=== PATIENT | male | born 1990 | race Native Hawaiian/Other Pacific Islander ===

== ENCOUNTER 2017-12-13 17:21 | Emergency (ER) | payer BC ==
[~2017-12-13] VITALS: Ht 175.3 cm; Wt 65.8 kg
[2017-12-13] MEDS ORDERED: TDAP DIPH,PERTUSS,TET VAC/PF 0.5 ML DISP.SYRIN IM ONE (17:55)
--- NOTE | 2017-12-13 18:04 | NUR ---
[place] the [place] piece of leafspring came through his windshield causing a vertical laceration about [address] Hernández glued the laceration which was irrigated with saline. A tetnus was administered as client was unsure of last immunization date. Addendum: 12/13/17 at 180 by ESTEFANIA Client denies any LOC. Parents are at the bedside, there is no complaints of pain, no nausea or vomiting and no concerns for brain bleed. Addendum: 12/13/17 at 1818 by ESTEFANIA 1818 instructed client to return if he becomes confused, disorientated or starts vomiting. Mother and father at the bedside and verbalized understanding. Client is alert and orinetated with no indication of brain injury.
[2017-12-13] MEDS: TDAP DIPH,PERTUSS,TET VAC/PF 0.5 ML DISP.SYRIN IM ONE (18:08)
[2017-12-13 18:18] VITALS: BP 125/78
== END 2017-12-13 18:20 | disposition home or self-care (01) ==
LOC: ER 17:21
DX: S01.81XA Laceration without foreign body of other part of head, initial encounter (principal); W26.9XXA Contact with unspecified sharp object(s), initial encounter; Y93.89 Activity, other specified; Y99.8 Other external cause status; Y92.89 Other specified places as the place of occurrence of the external cause
CPT/HCPCS: 12011; 90471; 90715; 99283; A4217; A4663